=== PATIENT | male | born 1985 ===

== ENCOUNTER 2022-06-14 14:23 | Emergency (ER) | payer SELFPAY ==
--- NOTE | ~2022-06-14 | US_ITS ---
EXAMINATION: US VENOUS ULTRASOUND WITH DOPPLER LOWER EXTREMITY, LEFT CLINICAL INFORMATION: Left lower extremity swelling. COMPARISON: None available. TECHNIQUE: Ultrasound of the deep veins is performed from the hip to the calf with compression sonography and color and pulse Doppler assessment. Spectral analysis with color-flow imaging is performed. FINDINGS: There is normal venous compression and respiratory variation and augmented flow. The visualized common femoral vein, superficial femoral vein, profunda femoral vein, popliteal vein, and the trifurcation region shows no evidence of deep venous thrombosis. No left popliteal cyst. The subcutaneous soft tissues show mild edema in the left calf. US/US venous duplex LE LT IMPRESSION: 1. No evidence for deep venous thrombosis in the visualized veins of the left lower extremity. 2. Mild edema in the left calf.
[2022-06-14 14:40] VITALS: BP 194/81; PULSE 89; RESP 18; TEMP 36.6; O2SAT 98; BMI 69.2
--- NOTE | 2022-06-14 14:43 | ED_ITS ---
HPI - General Adult General Chief complaint: Skin/Abscess/Foreign Body <MAU Méndez - Last Filed: 06/14/22 14:44> Stated complaint: L leg pain/ red, fever, chills <MAU Méndez - Last Filed: 06/14/22 14:44> Time Seen by Provider: 06/14/22 18:20 <MAU Méndez - Last Filed: 06/14/22 14:44> Source: patient and family () <Heri Leiva MD - Last Filed: 06/14/22 19:49> Mode of arrival: ambulatory <Heri Leiva MD - Last Filed: 06/14/22 19:49> Limitations: no limitations <Hrei Leiva MD - Last Filed: 06/14/22 19:49> History of Present Illness HPI narrative: 36-year-old male who presents emergency department for evaluation of redness of his left lower extremity, the shaking chills, fatigue, loss of appetite. Patient states that he developed shaking chills on Sunday (3 days prior to evaluation). He states he has had a decreased appetite and has had very little food to eat over the last 24 hours. He has also had fatigue. He states that last night he noticed redness and pain in his left lower extremity. He states that his cellulitis 6 years prior in the same leg. <Heri Leiva MD - Last Filed: 06/14/22 19:49> Related Data Home medications: Previous Rx's Medication Instructions Recorded cephalexin 500 mg capsule 500 mg PO QID 7 days #28 caps 06/14/22 doxycycline hyclate 100 mg capsule 100 mg PO BID 7 days #14 caps 06/14/22 <MAU Méndez - Last Filed: 06/14/22 14:44> Allergies/adverse reactions: Allergies Allergy/AdvReac Type Severity Reaction Status Date / Time No Known Allergies Allergy Unverified 10/30/19 15:34 <MAU Méndez - Last Filed: 06/14/22 14:44> Review of Systems Review of Systems: Yes all other systems are reviewed and are negative <Heri Leiva MD - Last Filed: 06/14/22 19:49> [facility] Past Medical History [facility] Narrative: Past medical history: Hypertension social history: He denies tobacco use. He occasionally drinks alcohol. He smokes marijuana occasionally. <Heri Leiva MD - Last Filed: 06/14/22 19:49> Social History Social History: Social History Advance Directives: No Advance Directives Information Provided: No <MAU Méndez - Last Filed: 06/14/22 14:44> Physical Exam ED Vital Signs: Vital Signs - 24 hr 06/14/22 14:40 Temperature 98 F Pulse Rate 89 Respiratory Rate 18 Blood Pressure 194/81 H Pulse Oximetry 98 Oxygen Delivery Method Room Air BMI result Body Mass Index 69.2 <MAU Méndez - Last Filed: 06/14/22 14:44> Vital Signs - 24 hr 06/14/22 14:40 Temperature 98 F Pulse Rate 89 Respiratory Rate 18 Blood Pressure 194/81 H Pulse Oximetry 98 Oxygen Delivery Method Room Air BMI result Body Mass Index 69.2 Vital signs did reveal an elevated blood pressure of 194/81 but the patient has essential hypertension. <Heri Leiva MD - Last Filed: 06/14/22 19:49> General: Awake, alert, male patient, pleasant, cooperative in no distress, answers all questions appropriately. Elevated BMI 69.2. HEENT: Head is normocephalic atraumatic, pupils equal round reactive light, sclera contact however normal mouth revealed moist member Neck: Supple no adenopathy Lungs: Clear to auscultation breath sounds symmetric bilateral Back: No CVA tenderness Abdomen: Obese, soft, nontender Extremities: Left lower extremity did reveal erythema above the ankle to just below the knee, the patient's skin is dry and cracked, no flocculence Neuro: Normal <Heri Leiva MD - Last Filed: 06/14/22 19:49> Course Course Course Narrative: This is an RME: Additional HPI, ROS, PE not included below will be deferred to primary provider. 36-year-old male presents with fatigue, malaise, fevers, chills, left lower extremity erythema, warmth and swelling for the past 3 days worsening. Patient tells me this feels like the time he had cellulitis, last time he had cellulitis is the same left lower extremity. Patient does not have a history of DVT. Not anticoagulated. Physical exam erythematous, edematous and warm left lower extremity, neurovascular intact. Plan DVT study, basic labs. <MAU Méndez - Last Filed: 06/14/22 14:44> Medical Decision Making Medical Decision Making [facility] Narrative: 36-year-old male who presents emergency department for evaluation of shaking chills, fatigue, loss of appetite and redness to his left lower extremity which started on Sunday (3 days prior). Patient had cellulitis in the same leg 6 years prior. Examination is consistent with cellulitis. The patient was started on Keflex 500 mg 4 times a day for 7 days and doxycycline 100 mg twice a day x7 days. He was advised to take Tylenol and ibuprofen for pain and fever. He was given printed and verbal instructions discharged home 1946: My independent interpretation patient's laboratory evaluation is as follows: CBC was normal. CMP revealed an elevated glucose of 175 otherwise unremarkable. <Heri Leiva MD - Last Filed: 06/14/22 19:49> Differential Diagnosis Differential diagnosis includes was not limited to cellulitis, abscess, dermatitis, abscess <Heri Leiva MD - Last Filed: 06/14/22 19:49> Admission/Observation Consideration of admission/observation: Escalation of care including admission/observation considered <Heri Leiva MD - Last Filed: 06/14/22 19:49> Lab Data [facility] Lab Attestation statement: I reviewed the patient's lab results. <Heri Leiva MD - Last Filed: 06/14/22 19:49> Please see [facility] <Heri Leiva MD - Last Filed: 06/14/22 19:49> Result Diagrams: 06/14/22 15:40 06/14/22 15:40 <MAU Méndez - Last Filed: 06/14/22 14:44> Labs: Lab Results 06/14/22 06/14/22 06/14/22 Range/Units 15:40 15:40 15:40 WBC 10.5 (4.8-10.8) X10*3/uL RBC 5.00 (4.60-5.80) X10*6/uL Hgb 13.5 L (14.0-18.0) g/dl Hct 42.5 (42.0-52.0) % MCV 85.0 (80.0-98.0) fL MCH 27.0 (27.0-33.0) pg MCHC 31.8 (31.0-36.0) g/dl RDW 13.2 (11.0-16.0) % Plt Count 209 (160-400) X10*3/uL MPV 11.0 (9.4-12.4) fL Immature Gran % (Auto) 1.0 H (0.0-0.4) % Neut % (Auto) 71.3 (45-73) % Lymph % (Auto) 18.9 L (20-40) % Graves % (Auto) 7.1 (2-11) % Eos % (Auto) 1.3 (0-4) % Baso % (Auto) 0.4 (0-2) % Lymph # (Auto) 2.0 (1.2-4.9) X10*3/uL Graves # (Auto) 0.8 (0.1-1.2) X10*3/uL Eos # (Auto) 0.1 (0.0-0.4) X10*3/uL Baso # (Auto) 0.0 (0.0-0.2) X10*3/uL Abs Immat Gran (auto) 0.11 H (0.00-0.03) X10*3/uL Absolute Neuts (auto) 7.5 (2.0-8.3) x10*3/uL Absolute Nucleated RBC 0.000 (0.0-0.012) X10*3/uL Nucleated RBC % (auto) 0.0 (0.0-0.2) /100WBC PT 14.8 H (10.0-13.1) SEC INR 1.3 H (0.9-1.1) Sodium 141 (135-145) mmol/L Potassium 4.0 (3.3-5.1) mmol/L Chloride 105 (96-108) mmol/L Carbon Dioxide 29 (22-29) mmol/L Anion Gap 11 L (12-20) BUN 13 (9-16) mg/dL Creatinine 0.99 (0.5-1.4) mg/dL Estim Creat Clear Calc 202.9 Estimated GFR > 60 Random Glucose 175 H (60-115) mg/dL Calcium 8.8 (8.4-10.2) mg/dL Magnesium 2.2 (1.6-2.6) mg/dL Total Bilirubin 0.9 (0.0-1.0) mg/dL AST 18 (5-37) U/L ALT 19 (0-40) U/L Alkaline Phosphatase 94 (39-117) U/L Total Protein 7.1 (6.5-8.0) g/dL Albumin 4.0 (3.5-5.0) g/dL <MAU Méndez - Last Filed: 06/14/22 14:44> Lab Results 06/14/22 06/14/22 06/14/22 Range/Units 15:40 15:40 15:40 WBC 10.5 (4.8-10.8) X10*3/uL RBC 5.00 (4.60-5.80) X10*6/uL Hgb 13.5 L (14.0-18.0) g/dl Hct 42.5 (42.0-52.0) % MCV 85.0 (80.0-98.0) fL MCH 27.0 (27.0-33.0) pg MCHC 31.8 (31.0-36.0) g/dl RDW 13.2 (11.0-16.0) % Plt Count 209 (160-400) X10*3/uL MPV 11.0 (9.4-12.4) fL Immature Gran % (Auto) 1.0 H (0.0-0.4) % Neut % (Auto) 71.3 (45-73) % Lymph % (Auto) 18.9 L (20-40) % Graves % (Auto) 7.1 (2-11) % Eos % (Auto) 1.3 (0-4) % Baso % (Auto) 0.4 (0-2) % Lymph # (Auto) 2.0 (1.2-4.9) X10*3/uL Graves # (Auto) 0.8 (0.1-1.2) X10*3/uL Eos # (Auto) 0.1 (0.0-0.4) X10*3/uL Baso # (Auto) 0.0 (0.0-0.2) X10*3/uL Abs Immat Gran (auto) 0.11 H (0.00-0.03) X10*3/uL Absolute Neuts (auto) 7.5 (2.0-8.3) x10*3/uL Absolute Nucleated RBC 0.000 (0.0-0.012) X10*3/uL Nucleated RBC % (auto) 0.0 (0.0-0.2) /100WBC PT 14.8 H (10.0-13.1) SEC INR 1.3 H (0.9-1.1) Sodium 141 (135-145) mmol/L Potassium 4.0 (3.3-5.1) mmol/L Chloride 105 (96-108) mmol/L Carbon Dioxide 29 (22-29) mmol/L Anion Gap 11 L (12-20) BUN 13 (9-16) mg/dL Creatinine 0.99 (0.5-1.4) mg/dL Estim Creat Clear Calc 202.9 Estimated GFR > 60 Random Glucose 175 H (60-115) mg/dL Calcium 8.8 (8.4-10.2) mg/dL Magnesium 2.2 (1.6-2.6) mg/dL Total Bilirubin 0.9 (0.0-1.0) mg/dL AST 18 (5-37) U/L ALT 19 (0-40) U/L Alkaline Phosphatase 94 (39-117) U/L Total Protein 7.1 (6.5-8.0) g/dL Albumin 4.0 (3.5-5.0) g/dL <Heri Leiva MD - Last Filed: 06/14/22 19:49> Radiology Impression Discussion of test interpretation with radiology: I have reviewed the radiologist's reading. <Heri Leiva MD - Last Filed: 06/14/22 19:49> Radiologist Impression: US venous duplex LE LT IMPRESSION: 1. No evidence for deep venous thrombosis in the visualized veins of the left lower extremity. 2. Mild edema in the left calf. Dictated By:Chris Loyd MD <Heri Leiva MD - Last Filed: 06/14/22 19:49> Independent Historian Clinical information obtained from an independent historian. History obtained from or confirmed by: Spouse <Heri Leiva MD - Last Filed: 06/14/22 19:49> Discharge Plan Discharge Clinical Impression: Cellulitis of left lower leg <MAU Méndez - Last Filed: 06/14/22 14:44> Patient Disposition: Home, Self-Care <MAU Méndez - Last Filed: 06/14/22 14:44> Instructions: Cellulitis (ED) <MAU Méndez - Last Filed: 06/14/22 14:44> Additional Instructions: Cellulitis Discharge Instructions You have an infection of your skin. This is called cellulitis. This is usually caused by bacteria on your skin that gets under your skin and then causes the infection. Your skin is very dry and cracked and this is the cause of your cellulitis. Use a moisturizing skin lotion twice a day for the next 2 weeks to help treat the dryness of your skin. Can then use this at night before you go to bed to prevent dry cracked skin. Take Keflex 500 mg pills, 1 pill 4 times a day for 1 week. Take doxycycline 100 mg, 1 pill twice a day for 1 week. This is an antibiotic that should help your body fight off the infection. Keep the area of cellulitis elevated to help reduce swelling in the infected area and this helps with the healing process Also apply a heating pad on low or a warm compress for 15 minutes, 4-6 times a day. This will increase the blood flow to the area and will bring white blood cells to the area which will help your body fight off the infection. Take Motrin(ibuprofen) 200mg pills, 2 pills every 6 hours as needed for pain. Also take Tylenol( acetaminophen) 325 mg pills, 2 pills every 4 hours as needed for pain. If we bala a line around the area of cellulitis, the redness should withdraw from the line in the next 1-3 days. If the redness crosses the line this is a sign that the infection is getting worse and you should see your doctor or return to the Emergency Department for a recheck. Other signs of worsening infection include fever, chills, weakness, increased pain, increased redness, increased swelling or red streaks going away from the area of infection. If you develop any of these symptoms or any other symptoms that are concerning to you, see your doctor immediately or return to the Emergency Department. Follow up with your doctor in 3 days for a recheck Please read the other printed instructions that we printed for you. <MAU Méndez - Last Filed: 06/14/22 14:44> Prescriptions: New doxycycline hyclate 100 mg capsule 100 mg PO BID 7 Days Qty: 14 0RF cephalexin 500 mg capsule 500 mg PO QID 7 Days Qty: 28 0RF <MAU Méndez - Last Filed: 06/14/22 14:44>
--- OUTSIDE RECORDS SUMMARY | 2022-06-14 15:37 | XMS_ITS | Continuity of Care Document ---
Author Name Unknown Organization [facility] Address [address] [place] [address]- Care Team Providers Care Bag Sealer Name Role Phone Kyle GILLESPIE, Oumar Gomez Primary Care Physician Encounter [facility] Date(s): 12/08/20 - 01/07/21 [facility] Adult [address] [place] [address]- Encounter Diagnosis Palpitations(Discharge Diagnosis) - 12/09/20 Neck pain(Discharge Diagnosis) - 12/09/20 CRP elevated(Discharge Diagnosis) - 12/09/20 HTN (hypertension)(Discharge Diagnosis) - 12/09/20 Morbid (severe) obesity due to excess calories(Discharge Diagnosis) - 12/09/20 Prediabetes(Discharge Diagnosis) - 12/09/20 Allergies, Adverse Reactions, Alerts Substance Reaction Severity Status NKA Active Immunizations Given and Recorded Vaccine Date Status Refusal Reason SARS-CoV-2 (COVID-19) mRNA BNT-162b2 vac 03/15/20 Recorded SARS-CoV-2 (COVID-19) mRNA BNT-162b2 vac 02/23/20 Recorded influenza virus vaccine, inactivated 12/08/19 Jonathan rded influenza virus vaccine, inactivated 02/21/17 Jonathan rded Medications amlodipine-benazepril 5 mg-10 mg oral capsule 1 capsule, By Mouth, Daily, Please have lab work drawn., # 30 capsule, 0 Refills, Maintenance, 12/16/20 8:10:00 EDT, [id number], 30, Patient needs repeat bloodwork for additional refills., 1 capsule By Mouth Daily,Instr:Please have lab work . Start Date: 12/16/20 Status: Ordered Problem List Condition Effective Dates Status Health Status Inform ant HTN (hypertension)(Confirmed) Active Morbid (severe) obesity due to excess calories(Confirmed) Active Prediabetes(Confirmed) Active Diagnosis Diagnosis Type Effective Dates Health Status Clinical Service Informant Palpitations Discharge Diagnosis 12/09/20 Non-Specified Neck pain Discharge Diagnosis 12/09/20 Non-Specified CRP elevated Discharge Diagnosis 12/09/20 Non-Specified HTN (hypertension) Discharge Diagnosis 12/09/20 Non-Specified Morbid (severe) obesity due to excess calories Discharge Diagnosis 12/09/20 Non-Specified Prediabetes Discharge Diagnosis 12/09/20 Non-Specified Social History Social History Type Response Smoking Status Never smoker entered on: 04/03/16 Sex
--- OUTSIDE RECORDS SUMMARY | 2022-06-14 15:37 | XMS_ITS | Continuity of Care Document ---
Author Name Unknown Organization [facility] Address [address] [place] [address]- Care Team Providers Care Regulator Mechanic Name Role Phone Kyle GILLESPIE, Oumar Gomez Primary Care Physician [phone] Encounter [facility] [place] Date(s): 09/17/20 - 10/17/20 [facility] Adult [address] [place] [address]- Attending Physician: Admtr, Oscar Admitting Physician: AdmtrOscar Referring Physician: Admtr, Ar8 Allergies, Adverse Reactions, Alerts Substance Reaction Severity Status NKA Active Immunizations Given and Recorded Vaccine Date Status Refusal Reason SARS-CoV-2 (COVID-19) mRNA BNT-162b2 vac 03/15/20 Recorded SARS-CoV-2 (COVID-19) mRNA BNT-162b2 vac 02/23/20 Recorded influenza virus vaccine, inactivated 12/08/19 Jonathan rded influenza virus vaccine, inactivated 02/21/17 Jonathan rded Problem List Condition Effective Dates Status Health Status Inform ant Morbid (severe) obesity due to excess calories(Confirmed) Active Social History Social History Type Response Smoking Status Never smoker entered on: 04/03/16 Sex
--- OUTSIDE RECORDS SUMMARY | 2022-06-14 15:37 | XMS_ITS | Continuity of Care Document ---
Author Name Unknown Organization [facility] Address [address] [place] [address]- Care Team Providers Care Research Home Economist Name Role Phone Kyle GILLESPIE, Oumar Gomez Primary Care Physician Encounter [facility] Date(s): 11/08/20 - 12/08/20 [facility] Adult [address] [place] [address]- Allergies, Adverse Reactions, Alerts Substance Reaction Severity Status NKA Active Immunizations Given and Recorded Vaccine Date Status Refusal Reason SARS-CoV-2 (COVID-19) mRNA BNT-162b2 vac 03/15/20 Recorded SARS-CoV-2 (COVID-19) mRNA BNT-162b2 vac 02/23/20 Recorded influenza virus vaccine, inactivated 12/08/19 Jonathan rded influenza virus vaccine, inactivated 02/21/17 Jonathan rded Medications amlodipine-benazepril 5 mg-10 mg oral capsule 1 capsule, By Mouth, Daily, # 30 capsule, 0 Refills, Maintenance, 11/05/20 8:53:00 EDT, Capsule, [id number], Partial fill upon patient request if the prescription is for a schedule II opioid drug., 1 capsule By Mouth Daily, 180, cm, 11/05/20 8... Start Date: 11/05/20 Status: Ordered Problem List Condition Effective Dates Status Health Status Inform ant HTN (hypertension)(Confirmed) Active Morbid (severe) obesity due to excess calories(Confirmed) Active Prediabetes(Confirmed) Active Social History Social History Type Response Smoking Status Never smoker entered on: 04/03/16 Sex
--- OUTSIDE RECORDS SUMMARY | 2022-06-14 15:37 | XMS_ITS | Continuity of Care Document ---
Author Name Unknown Organization [facility] Address [address] [place] [address]- Care Team Providers Care Tractor Sweeper Driver Name Role Phone Kyle GILLESPIE, Oumar Gomez Primary Care Physician [phone] Encounter [facility] Date(s): 10/29/20 - 11/28/20 [facility] Adult [address] [place] [address]- Allergies, Adverse Reactions, Alerts Substance Reaction Severity [...] Refills, Maintenance, 11/05/20 8:53:00 EDT, Capsule, [id number], Partial fill upon patient request if the [...]
--- OUTSIDE RECORDS SUMMARY | 2022-06-14 15:37 | XMS_ITS | Continuity of Care Document ---
Author Name Unknown Organization [facility] Address [address] [place] [address]- Care Team Providers Care Aeronautics Teacher Name Role Phone Kyle GILLESPIE, Oumar Gomez Primary Care Physician Encounter [facility] [place] Date(s): 11/05/20 - 12/05/20 [facility] Adult [address] [place] [address]- Attending Physician: Admtr, Ar8 Admitting Physician: Admtr, Ar8 Referring Physician: Admtr, Ar8 Allergies, Adverse Reactions, [...] Refills, Maintenance, 11/05/20 8:53:00 EDT, Capsule, [id number], Partial fill upon patient request if the [...]
--- OUTSIDE RECORDS SUMMARY | 2022-06-14 15:37 | XMS_ITS | Continuity of Care Document ---
Author Name Unknown Organization [facility] [address] Address [address] [place] [address]- Care Team Providers Care Earth Science Laboratory Technician Name Role Phone Jeramy WATKINS, Leny Sutton Primary Care Physician Encounter [facility] [place] Date(s): 03/15/21 - 04/17/21 [facility] Adult [address] [place] [address]- Attending Physician: Leny Deshpande NP Allergies, Adverse Reactions, Alerts No Known Allergies Immunizations Given and Recorded Vaccine Date Status Refusal Reason SARS-CoV-2 (COVID-19) mRNA BNT-162b2 vac 03/15/20 Recorded SARS-CoV-2 (COVID-19) mRNA BNT-162b2 vac 02/23/20 Recorded influenza virus vaccine, inactivated 12/08/19 Jonathan rded influenza virus vaccine, inactivated 02/21/17 Jonathan rded Medications amlodipine-benazepril 5 mg-10 mg oral capsule 1 capsule, By Mouth, Daily, # 90 capsule, 2 Refills, Maintenance, 03/21/21 15:13:00 EST, [id number], Patient needs repeat bloodwork for additional refills., 1 capsule By Mouth Daily, 180, cm,11/05/20 8:39:00 EDT, Height Start Date: 03/21/21 Status: Ordered Problem List Condition Effective Dates Status Health Status Inform ant HTN (hypertension)(Confirmed) Active Morbid (severe) obesity due to excess calories(Confirmed) Active Prediabetes(Confirmed) Active Social History Social History Type Response Smoking Status Never smoker entered on: 04/03/16 Sex
--- OUTSIDE RECORDS SUMMARY | 2022-06-14 15:37 | XMS_ITS | Continuity of Care Document ---
Author Name Unknown Organization [facility] Address [address] [place] [address]- Care Team Providers Care Record Changer Name Role Phone Kyle GILLESPIE, Oumar Gomez Primary Care Physician Encounter [facility] [place] Date(s): 11/05/20 - 11/12/20 [facility] Adult [address] [place] [address]- Encounter Diagnosis Palpitations(Discharge Diagnosis) - 11/05/20 Neck pain(Discharge Diagnosis) - 11/05/20 CRP elevated(Discharge Diagnosis) - 11/05/20 HTN (hypertension)(Discharge Diagnosis) - 11/05/20 Morbid (severe) obesity due to excess calories(Discharge Diagnosis) - 11/05/20 Prediabetes(Discharge Diagnosis) - 11/05/20 Attending Physician: Ana Luisa Mccloud NP Allergies, Adverse Reactions, Alerts Substance Reaction Severity [...] Refills, Maintenance, 11/05/20 8:53:00 EDT, Capsule, [id number], Partial fill upon patient request if the prescription is for a schedule II opioid drug., 1 capsule By Mouth Daily, 180, cm, 11/05/20 8... Start Date: 11/05/20 Status: Ordered naproxen 500 mg oral tablet 1 tablet = 500 mg, By Mouth, 2 times a day, PRN for pain, for 10 days, # 20 tablet, 0 Refills, Acute 11/15/20 9:23:00 EDT, 11/05/20 9:23:00 EDT, Tablet, [facility], Partial fill uponpatient request if the prescription is for a schedu... Start Date: 11/05/20 Stop Date: 11/15/20 Status: Ordered Problem List Condition Effective Dates Status Health Status Inform ant HTN (hypertension)(Confirmed) Active Morbid (severe) obesity due to excess calories(Confirmed) Active Prediabetes(Confirmed) Active Diagnosis Diagnosis Type Effective Dates Health Status Clinical Service Informant Palpitations Discharge Diagnosis 11/05/20 Neck pain Discharge Diagnosis 11/05/20 CRP elevated Discharge Diagnosis 11/05/20 HTN (hypertension) Discharge Diagnosis 11/05/20 Morbid (severe) obesity due to excess calories Discharge Diagnosis 11/05/20 Prediabetes Discharge Diagnosis 11/05/20 Vital Signs Most recent to oldest [Reference Range]: 1 Height 180.0 cm (11/05/20 8:39 AM) Weight 227.27 kg (11/05/20 8:39 AM) Body Mass Index [18.5-24.99] 70.15 *>HHI* (11/05/20 8:39 AM) Blood Pressure [90-138/55-84 mm Hg] 171/ 79mm Hg *H* (11/05/20 8:39 AM) Weight Obtained Via Standing scale (11/05/20 8:39 AM) Social History Social History Type Response Smoking Status Never smoker entered on: 04/03/16 Sex
--- OUTSIDE RECORDS SUMMARY | 2022-06-14 15:37 | XMS_ITS | Continuity of Care Document ---
Author Name Unknown Organization [facility] Address [address] [place] [address]- Care Team Providers Care Implementation Project Manager Name Role Phone Oumar Wright MD Primary Care Physician [place] [facility] [place]): [place]17[place]20 - 09/24/20 [facility] Adult [address] [place] [address]- Encounter Diagnosis Morbid (severe) obesity due to excess calories(Discharge Diagnosis) - 09/17/20 Attending Physician: Oumar Wright MD Allergies, Adverse Reactions, Alerts Substance Reaction Severity Status NKA Active Immunizations Given and Recorded Vaccine Date Status Refusal Reason SARS-CoV-2 (COVID-19) mRNA BNT-162b2 vac 03/15/20 Recorded SARS-CoV-2 (COVID-19) mRNA BNT-162b2 vac 02/23/20 Recorded influenza virus vaccine, inactivated 12/08/19 Jonathan rded influenza virus vaccine, inactivated 02/21/17 Jonathan rded Medications No Known Medications Problem List Condition Effective Dates Status Health Status Inform ant Morbid (severe) obesity due to excess calories(Confirmed) Active Diagnosis Diagnosis Type Effective Dates Health Status Cl inical Service Informant Morbid (severe) obesity due to excess calories Discharge Diagnosis 09/17/20 Procedures Procedure Date Related Diagnosis Body Site Status None Completed Vital Signs Most recent to oldest [Reference Range]: 1 Height 180.0 cm (09/17/20 9:56 AM) Weight 223.6 kg (09/17/20 9:56 AM) Body Mass Index [18.5-24.99] 69.01 *>HHI* (09/17/20 9:56 AM) Weight Obtained Via Standing scale (09/17/20 9:56 AM) Social History Social History Type Response Smoking Status Never smoker entered on: 04/03/16 Sex
--- OUTSIDE RECORDS SUMMARY | 2022-06-14 15:37 | XMS_ITS | Continuity of Care Document ---
Author Name Unknown Organization [facility] Address [address] [place] [address]- Care Team Providers Care Prevention Coordinator Name Role Phone Kyle GILLESPIE, Oumar Gomez Primary Care Physician Encounter [facility] Date(s): 10/21/20 - 11/20/20 [facility] Adult [address] [place] [address]- Allergies, Adverse Reactions, Alerts Substance Reaction Severity [...] Refills, Maintenance, 11/05/20 8:53:00 EDT, Capsule, [id number], Partial fill upon patient request if the [...]
--- OUTSIDE RECORDS SUMMARY | 2022-06-14 15:37 | XMS_ITS | Continuity of Care Document ---
Author Name Unknown Organization [facility] Address [address] [place] [address]- Care Team Providers Care Cosmetic Sales Assistant Name Role Phone Jeramy WATKINS, Leny Sutton Primary Care Physician [place] [facility] [place] 03/18[place]21 - 04/17/21 [facility] Adult [address] [place] [address]- Attending Physician: AdmOscar will Admitting Physician: AdmtrOscar Referring Physician: Admtr, Ar8 Allergies, Adverse Reactions, Alerts No Known Allergies [...] capsule, 2 Refills, Maintenance, 03/21/21 15:13:00 EST, [facility]/pharmacy #[id number], Patient needs repeat bloodwork for additional refills., [...]
--- OUTSIDE RECORDS SUMMARY | 2022-06-14 15:38 | XMS_ITS | Continuity of Care Document ---
Author Name Unknown Organization [facility] Address [address] [place] [address]- Care Team Providers Care Bond Underwriter Name Role Phone Kyle GILLESPIE, Oumar Gomez Primary Care Physician [phone] Encounter [facility] [place] Date(s): 10/22/20 - 10/29/20 [facility] Adult [address] [place] [address]- Encounter Diagnosis Elevated BP without diagnosis of hypertension(Discharge Diagnosis) - 10/22/20 HTN (hypertension)(Discharge Diagnosis) - 10/22/20 Dizziness(Discharge Diagnosis) - 10/22/20 Morbid (severe) obesity due to excess calories(Discharge Diagnosis) - 10/22/20 Palpitation(Discharge Diagnosis) - 10/22/20 Family history of diabetes mellitus (DM)(Discharge Diagnosis) - 10/22/20 Neck pain on left side(Discharge Diagnosis) - 10/22/20 Attending Physician: Ana Luisa Mccloud NP Allergies, Adverse Reactions, Alerts Substance Reaction Severity Status NKA Active Immunizations Given and Recorded Vaccine Date Status Refusal Reason SARS-CoV-2 (COVID-19) mRNA BNT-162b2 vac 03/15/20 Recorded SARS-CoV-2 (COVID-19) mRNA BNT-162b2 vac 02/23/20 Recorded influenza virus vaccine, inactivated 12/08/19 Jonathan rded influenza virus vaccine, inactivated 02/21/17 Jonathan rded Medications amLODIPine 5 mg oral tablet 5 mg, 1, tablet, By Mouth, Daily, # 30 tablet, Refills 0, Tot. Refills 0, Maintenance, 10/22/20 11:47:00 EDT, Route to Pharmacy Electronically, [facility]/pharmacy #[id number], Partial fill upon patient request if the prescription is for a schedule II opioid drug.... Start Date: 10/22/20 Status: Ordered naproxen 500 mg oral tablet 1 tablet = 500 mg, By Mouth, 2 times a day, PRN for pain, for 10 days, # 20 tablet, 0 Refills, Acute 11/01/20 12:02:00 EDT, 10/22/20 12:02:00 EDT, Tablet, [facility]/pharmacy #[id number], Partial fill upon patient request if the prescription is for a schedule II o... Start Date: 10/22/20 Stop Date: 11/01/20 Status: Ordered Problem List Condition Effective Dates Status Health Status Inform ant Morbid (severe) obesity due to excess calories(Confirmed) Active Prediabetes(Confirmed) Active Diagnosis Diagnosis Type Effective Dates Health Status Clinical Service Informant Elevated BP without diagnosis of hypertension Discharge Diagnosis 10/22/20 Dizziness Discharge Diagnosis 10/22/20 Family history of diabetes mellitus (DM) Discharge Diagnosis 10/22/20 Morbid (severe) obesity due to excess calories Discharge Diagnosis 10/22/20 Palpitation Discharge Diagnosis 10/22/20 HTN (hypertension) Discharge Diagnosis 10/22/20 Neck pain on left side Discharge Diagnosis 10/22/20 Vital Signs Most recent to oldest [Reference Range]: 1 2 Height 180.0 cm (10/22/20 11:42 AM) 180.0 cm (10/22/20 11:30 AM) Weight 231.3 kg (10/22/20 11:30 AM) Oxygen Saturation [94-100 %] 97 % (10/22/20 11:30 AM) Pulse Rate [55-90 bpm] 86 bpm (10/22/20 11:30 AM) Body Mass Index [18.5-24.99] 71.39 *>HHI* (10/22/20 11:30 AM) Blood Pressure [90-138/55-84 mm Hg] 160/ 83mm Hg *H* (10/22/20 11:42 AM) 166/84mm Hg *H* (10/22/20 11:30 AM) Temperature [96.8-100.4 DegF] 98.7 DegF (10/22/20 11:30 AM) Mode of Delivery (Oxygen) Room air (10/22/20 11:30 AM) Blood pressure sites Arm, left (10/22/20 11:42 AM) Arm, left (10/22/20 11:30 AM) Temperature Route Oral (10/22/20 11:30 AM) Social History Social History Type Response Smoking Status Never smoker entered on: 04/03/16 Sex
--- OUTSIDE RECORDS SUMMARY | 2022-06-14 15:38 | XMS_ITS | Continuity of Care Document ---
Author Name Unknown Organization [facility] Address [address] [place] [address]- Care Team Providers Care Heat Regulator Name Role Phone Kyle GILLESPIE, Oumar Gomez Primary Care Physician [phone] Encounter [facility] Date(s): 10/26/20 - 11/25/20 [facility] Adult [address] [place] [address]- Allergies, Adverse Reactions, Alerts Substance Reaction Severity [...] Refills, Maintenance, 11/05/20 8:53:00 EDT, Capsule, [facility]acy #[id number], Partial fill upon patient request if the [...]
--- OUTSIDE RECORDS SUMMARY | 2022-06-14 15:38 | XMS_ITS | Continuity of Care Document ---
Author Name Unknown Organization [facility] Address [address] [place] [address]- Care Team Providers Care Brush Stainer Name Role Phone Kyle GILLESPIE, Ouamr Gomez Primary Care Physician Encounter [facility] [place] Date(s): 10/21/20 - 11/20/20 [facility] Adult [address] [place] [address]- Allergies, Adverse Reactions, Alerts Substance Reaction Severity [...] Refills, Maintenance, 11/05/20 8:53:00 EDT, Capsule, [id number], Partial fill upon patient request if the [...]
[2022-06-14 15:43] LABS: MANUAL DIFF FLAG NO
[2022-06-14 15:44] LABS: Basophils Percent Auto 0.4 % (0-2); Eosinophils Absolute Auto 0.1 X10*3/uL (0.0-0.4); Eosinophils Percent Auto 1.3 % (0-4); Hematocrit 42.5 % (42.0-52.0); Hemoglobin 13.5 g/dl (14.0-18.0); Imm Gran Abs Auto 0.11 X10*3/uL (0.00-0.03); Lymphocytes Percent Auto 18.9 % (20-40); Mean Corpuscular HGB Conc 31.8 g/dl (31.0-36.0); Monocytes Absolute Auto 0.8 X10*3/uL (0.1-1.2); Monocytes Percent Auto 7.1 % (2-11); Neutrophils Absolute Auto 7.5 x10*3/uL (2.0-8.3); Neutrophils Percent Auto 71.3 % (45-73); Platelet Count 209 X10*3/uL (160-400); Red Cell Distribution Width 13.2 % (11.0-16.0); White Blood Count 10.5 X10*3/uL (4.8-10.8)
[2022-06-14 15:50] LABS: INTERNATIONAL NORM RATIO 1.3 (0.9-1.1); Prothrombin Time 14.8 SEC (10.0-13.1)
[2022-06-14 16:09] LABS: Alanine Aminotransferase 19 U/L (0-40); Alkaline Phosphatase 94 U/L (39-117); Anion Gap 11 (12-20); Aspartate Amino Transferase 18 U/L (5-37); Bilirubin Total 0.9 mg/dL (0.0-1.0); Blood Urea Nitrogen 13 mg/dL (9-16); Calcium 8.8 mg/dL (8.4-10.2); Carbon Dioxide 29 mmol/L (22-29); Chloride 105 mmol/L (96-108); Creatinine Clr Calc Pharmacy 202.9; Estimated Glomerular Filt Rate > 60; Glucose Random 175 mg/dL (60-115); Magnesium 2.2 mg/dL (1.6-2.6); Sodium 141 mmol/L (135-145); Total Protein 7.1 g/dL (6.5-8.0)
[2022-06-14 19:48] VITALS: BP 148/86; PULSE 78; RESP 17; TEMP 37; O2SAT 96
[2022-06-14] MEDS: cephALEXin 500 MG CAPSULE PO (19:48)
[2022-06-14] MEDS: Acetaminophen 325 MG TABLET 975 MG PO (19:48)
[2022-06-14] MEDS: Doxycycline Monohydrate 100 MG CAPSULE PO (19:48)
== END 2022-06-14 19:52 | disposition home or self-care (01) ==
PROVIDERS: Physician Assistant; Emergency Provider Emergency Medicine Emergency Medical Services
DX: L03.116 Cellulitis of left lower limb (principal); M79.605 Pain in left leg
CPT/HCPCS: 36415; 80053; 83735; 85025; 85610; 93971; 99283; 99284

== ENCOUNTER 2022-07-11 15:44 | Emergency (ER) | payer OTHER, SELFPAY ==
--- NOTE | ~2022-07-11 | US_ITS ---
EXAMINATION: US VENOUS ULTRASOUND WITH DOPPLER LOWER EXTREMITY, LEFT CLINICAL INFORMATION: Pain COMPARISON: Previous exam 06/14/2022 TECHNIQUE: Ultrasound of the deep veins is performed from the hip to the calf with compression sonography and color and pulse Doppler assessment. Spectral analysis with color-flow imaging is performed. FINDINGS: There is normal venous compression and respiratory variation and augmented flow. The visualized common femoral vein, superficial femoral vein, profunda femoral vein, popliteal vein, and posterior tibial veins shows no evidence of deep venous thrombosis. Peroneal veins not visualized. There is a significant edema. There is no significant popliteal fossa cyst. US/US venous duplex LE LT IMPRESSION: No DVT demonstrated in the left lower extremity. Peroneal veins not well visualized.
[2022-07-11 15:52] VITALS: BP 189/108; PULSE 92; RESP 19; TEMP 36.6; O2SAT 98; BMI 69.8
--- NOTE | 2022-07-11 15:53 | ED_ITS ---
HPI - Extremity Problem General Chief complaint: General Medical Stated complaint: L leg cellulitis Time Seen by Provider: 07/11/22 21:52 Related Data Previous Rx's Medication Instructions Recorded cephalexin 500 mg capsule 500 mg PO QID 7 days #28 caps 06/14/22 doxycycline hyclate 100 mg capsule 100 mg PO BID 7 days #14 caps 06/14/22 cephalexin 500 mg capsule 500 mg PO QID 10 days #40 caps 07/11/22 doxycycline hyclate 100 mg tablet 100 mg PO BID #42 tabs 07/11/22 Allergies Allergy/AdvReac Type Severity Reaction Status Date / Time No Known Allergies Allergy Verified 07/11/22 15:[facility] Social History Social History Advance Directives: No Advance Directives Information Provided: No Physical Exam Vital Signs: Vital Signs: Last Vital Signs Temp 98.4 F 07/11/22 22:41 Pulse 90 07/11/22 22:41 Resp 20 07/11/22 22:41 BP 164/100 H 07/11/22 22:41 Pulse Ox 96 07/11/22 22:41 O2 Del Method Room Air 07/11/22 22:41 BMI result Body Mass Index 69.8 Course Course Course Narrative: RME - 36 yo male with history of morbid obesity and recently diagnosed LLE celliulitis on 06/14 s/p course of doxycycline and keflex who presents to the ER for evaluation of 5 days of worsening pain, redness and swelling of the left lower leg with new fluid filled blisters. No fever or chills. plan: repeat LE dopplers, basic labs Reevaluation(s) Reevaluation #1: see dr. allan's note for full assessment Medications Administered Discontinued Medications Generic Name Dose Route Start Last Admin Trade Name Freq PRN Reason Stop Dose Admin Cephalexin HCl 500 mg 07/11/22 22:08 07/11/22 22:36 Cephalexin 500 Mg Capsule PO 07/11/22 22:09 500 mg ONCE ONE Administration Doxycycline Monohydrate 100 mg 07/11/22 22:07 07/11/22 22:37 Doxycycline Monohydrate 100 Mg Capsule PO 07/11/22 22:08 100 mg ONCE ONE Administration Medical Decision Making Lab Data 07/11/22 16:53 07/11/22 16:53 Labs: Lab Results 07/11/22 07/11/22 07/11/22 Range/Units 16:53 16:53 16:53 WBC 10.6 (4.8-10.8) X10*3/uL RBC 5.05 (4.60-5.80) X10*6/uL Hgb 13.6 L (14.0-18.0) g/dl Hct 42.6 (42.0-52.0) % MCV 84.4 (80.0-98.0) fL MCH 26.9 L (27.0-33.0) pg MCHC 31.9 (31.0-36.0) g/dl RDW 13.3 (11.0-16.0) % Plt Count 249 (160-400) X10*3/uL MPV 11.2 (9.4-12.4) fL Immature Gran % (Auto) 1.4 H (0.0-0.4) % Neut % (Auto) 60.6 (45-73) % Lymph % (Auto) 27.7 (20-40) % [place] % (Auto) 7.1 (2-11) % Eos % (Auto) 2.9 (0-4) % Baso % (Auto) 0.3 (0-2) % Lymph # (Auto) 2.9 (1.2-4.9) X10*3/uL [place] # (Auto) 0.8 (0.1-1.2) X10*3/uL Eos # (Auto) 0.3 (0.0-0.4) X10*3/uL Baso # (Auto) 0.0 (0.0-0.2) X10*3/uL Abs Immat Gran (auto) 0.15 H (0.00-0.03) X10*3/uL Absolute Neuts (auto) 6.4 (2.0-8.3) x10*3/uL Absolute Nucleated RBC 0.000 (0.0-0.012) X10*3/uL Nucleated RBC % (auto) 0.0 (0.0-0.2) /100WBC ESR 21 H (0-15) MM/HR Sodium 139 (135-145) mmol/L Potassium 4.2 (3.3-5.1) mmol/L Chloride 103 (96-108) mmol/L Carbon Dioxide 28 (22-29) mmol/L Anion Gap 12 (12-20) BUN 13 (9-16) mg/dL Creatinine 0.89 (0.5-1.4) mg/dL Estim Creat Clear Calc 227.2 Estimated GFR > 60 Random Glucose 137 H (60-115) mg/dL Calcium 9.4 D (8.4-10.2) mg/dL C-Reactive Protein 3.68 H (< or = 0.50) mg/dL Discharge Plan Discharge Clinical Impression: Cellulitis of left leg Patient Disposition: Home, Self-Care Instructions: Cellulitis (ED) Additional Instructions: Keep your legs elevated do not stand for long duration of time Antibiotic as prescribed Report to the ER worsening of the redness or swelling Prescriptions: New cephalexin 500 mg capsule 500 mg PO QID 10 Days Qty: 40 0RF doxycycline hyclate 100 mg tablet 100 mg PO BID Qty: 42 0RF No Action doxycycline hyclate 100 mg capsule 100 mg PO BID 7 Days Qty: 14 0RF cephalexin 500 mg capsule 500 mg PO QID 7 Days Qty: 28 0RF Interventions: ED Discharge Assessment Last Done: 07/11/22 22:41 Discharge Date/Time: 07/11/22 22:42
[2022-07-11 16:57] LABS: MANUAL DIFF FLAG NO
[2022-07-11 16:59] LABS: Basophils Percent Auto 0.3 % (0-2); Eosinophils Absolute Auto 0.3 X10*3/uL (0.0-0.4); Eosinophils Percent Auto 2.9 % (0-4); Hematocrit 42.6 % (42.0-52.0); Hemoglobin 13.6 g/dl (14.0-18.0); Imm Gran Abs Auto 0.15 X10*3/uL (0.00-0.03); Imm Gran Pct Auto 1.4 % (0.0-0.4); Lymphocytes Absolute Auto 2.9 X10*3/uL (1.2-4.9); Lymphocytes Percent Auto 27.7 % (20-40); Mean Corpuscular HGB Conc 31.9 g/dl (31.0-36.0); Mean Corpuscular Hemoglobin 26.9 pg (27.0-33.0); Mean Corpuscular Volume 84.4 fL (80.0-98.0); Mean Platelet Volume 11.2 fL (9.4-12.4); Monocytes Absolute Auto 0.8 X10*3/uL (0.1-1.2); Monocytes Percent Auto 7.1 % (2-11); Neutrophils Absolute Auto 6.4 x10*3/uL (2.0-8.3); Neutrophils Percent Auto 60.6 % (45-73); Platelet Count 249 X10*3/uL (160-400); Red Blood Count 5.05 X10*6/uL (4.60-5.80); Red Cell Distribution Width 13.3 % (11.0-16.0); White Blood Count 10.6 X10*3/uL (4.8-10.8)
[2022-07-11 17:13] LABS: Anion Gap 12 (12-20); Blood Urea Nitrogen 13 mg/dL (9-16); C Reactive Protein 3.68 mg/dL (< or = 0.50); Calcium 9.4 mg/dL (8.4-10.2); Carbon Dioxide 28 mmol/L (22-29); Chloride 103 mmol/L (96-108); Creatinine Clr Calc Pharmacy 227.2; Estimated Glomerular Filt Rate > 60; Glucose Random 137 mg/dL (60-115); Potassium 4.2 mmol/L (3.3-5.1); Sodium 139 mmol/L (135-145)
[2022-07-11 17:48] LABS: Erythrocyte Sedimentation Rate 21 MM/HR (0-15)
--- NOTE | 2022-07-11 22:14 | ED.EXTPRO ---
HPI - Extremity Problem General Chief complaint: General Medical Stated complaint: L leg cellulitis Time Seen by Provider: 07/11/22 21:52 Source: patient Mode of arrival: ambulatory Limitations: no limitations History of Present Illness HPI Narrative: Patient overweight obese person with lymphedema was seen here on 06/16 for left leg cellulitis treated with doxycycline Keflex for 1 week comes here as a recurrence of the redness again the left leg with blisters now no fever no open wound Related Data Previous Rx's Medication Instructions Recorded cephalexin 500 mg capsule 500 mg PO QID 7 days #28 caps 06/14/22 doxycycline hyclate 100 mg capsule 100 mg PO BID 7 days #14 caps 06/14/22 cephalexin 500 mg capsule 500 mg PO QID 10 days #40 caps 07/11/22 doxycycline hyclate 100 mg tablet 100 mg PO BID #42 tabs 07/11/22 Allergies Allergy/AdvReac Type Severity Reaction Status Date / Time No Known Allergies Allergy Verified 07/11/22 15:52 Review of Systems Review of Systems: Yes all other systems are reviewed and are negative [facility] Social History Social History Advance Directives: No Advance Directives Information Provided: No Physical Exam Vital Signs: Vital Signs: Last Vital Signs Temp 98 F 07/11/22 15:52 Pulse 92 07/11/22 15:52 Resp 19 07/11/22 15:52 BP 189/108 H 07/11/22 15:52 Pulse Ox 98 07/11/22 15:52 O2 Del Method Room Air 07/11/22 15:52 BMI result Body Mass Index 69.8 Appearance: Alert. Oriented X3. No acute distress. ENT: Pharynx normal. Oral Mucosa moist Neck: Normal inspection. Neck supple. CVS: Normal heart rate and rhythm. Pulses normal. Respiratory: No respiratory distress. Equal air entry bilateral, Abdomen: Soft and nontender. Bowel sounds are present, Skin: Skin warm and dry. Normal skin color. Normal skin turgor. Extremities: Not pitting bilateral leg edema left leg erythematous with clear fluid filled vesicle no open wound Gini sign negative No calf tenderness Neuro: Oriented X 3. Medical Decision Making Medical Decision Making MDM Narrative: Patient with stable labs recurrence of cellulitis and lymphedema/will start him again on doxycycline Keflex this time will give doxycycline for 3 weeks Lab Data MDM Lab Attestation statement: I reviewed the patient's lab results. 07/11/22 16:53 07/11/22 16:53 Labs: Lab Results 07/11/22 07/11/22 07/11/22 Range/Units 16:53 16:53 16:53 WBC 10.6 (4.8-10.8) X10*3/uL RBC 5.05 (4.60-5.80) X10*6/uL Hgb 13.6 L (14.0-18.0) g/dl Hct 42.6 (42.0-52.0) % MCV 84.4 (80.0-98.0) fL MCH 26.9 L (27.0-33.0) pg MCHC 31.9 (31.0-36.0) g/dl RDW 13.3 (11.0-16.0) % Plt Count 249 (160-400) X10*3/uL MPV 11.2 (9.4-12.4) fL Immature Gran % (Auto) 1.4 H (0.0-0.4) % Neut % (Auto) 60.6 (45-73) % Lymph % (Auto) 27.7 (20-40) % [place] % (Auto) 7.1 (2-11) % Eos % (Auto) 2.9 (0-4) % Baso % (Auto) 0.3 (0-2) % Lymph # (Auto) 2.9 (1.2-4.9) X10*3/uL [place] # (Auto) 0.8 (0.1-1.2) X10*3/uL Eos # (Auto) 0.3 (0.0-0.4) X10*3/uL Baso # (Auto) 0.0 (0.0-0.2) X10*3/uL Abs Immat Gran (auto) 0.15 H (0.00-0.03) X10*3/uL Absolute Neuts (auto) 6.4 (2.0-8.3) x10*3/uL Absolute Nucleated RBC 0.000 (0.0-0.012) X10*3/uL Nucleated RBC % (auto) 0.0 (0.0-0.2) /100WBC ESR 21 H (0-15) MM/HR Sodium 139 (135-145) mmol/L Potassium 4.2 (3.3-5.1) mmol/L Chloride 103 (96-108) mmol/L Carbon Dioxide 28 (22-29) mmol/L Anion Gap 12 (12-20) BUN 13 (9-16) mg/dL Creatinine 0.89 (0.5-1.4) mg/dL Estim Creat Clear Calc 227.2 Estimated GFR > 60 Random Glucose 137 H (60-115) mg/dL Calcium 9.4 D (8.4-10.2) mg/dL C-Reactive Protein 3.68 H (< or = 0.50) mg/dL Discharge Plan Discharge Clinical Impression: Cellulitis of left leg Patient Disposition: Home, Self-Care Instructions: Cellulitis (ED) Additional Instructions: Keep your legs elevated do not stand for long duration of time Antibiotic as prescribed Report to the ER worsening of the redness or swelling Prescriptions: New cephalexin 500 mg capsule 500 mg PO QID 10 Days Qty: 40 0RF doxycycline hyclate 100 mg tablet 100 mg PO BID Qty: 42 0RF No Action doxycycline hyclate 100 mg capsule 100 mg PO BID 7 Days Qty: 14 0RF cephalexin 500 mg capsule 500 mg PO QID 7 Days Qty: 28 0RF
[2022-07-11] MEDS: cephALEXin 500 MG CAPSULE PO (22:36)
[2022-07-11] MEDS: Doxycycline Monohydrate 100 MG CAPSULE PO (22:37)
[2022-07-11 22:41] VITALS: BP 164/100; PULSE 90; RESP 20; TEMP 36.9; O2SAT 96
== END 2022-07-11 22:42 | disposition home or self-care (01) ==
PROVIDERS: Physician Assistant; Emergency Provider Internal Medicine
DX: L03.116 Cellulitis of left lower limb (principal); R60.0 Localized edema
CPT/HCPCS: 36415; 80048; 85025; 85652; 86140; 93971; 99282; 99284